=== PATIENT | female | born 2000 | race Hispanic/Latino ===

== ENCOUNTER 2023-04-04 20:31 | Emergency (ER) | payer OTHER ==
[2023-04-04 21:33] LABS: Absolute Lymphocytes (CBC) 3.6 K/uL (0.7-4.9); Hematocrit 36.4 % (36.0-45.0); Lymphocytes % 24.1 % (15.3-44.8); MCV 79.5 fL (80-100); MPV 7.5 fL (7.6-11.3); RBC Red Blood Cell Count 4.57 M/uL (3.86-4.86); Specific Gravity 1.009 (1.005-1.030); Urine Bilirubin NEGATIVE (Negative); Urine Blood Negative (Negative); Urine Clarity Clear (Clear); Urine Color Colorless (Yellow); Urine Glucose NEGATIVE (Negative); Urine Protein NEGATIVE (Negative); Urine Urobilinogen Normal (Normal)
[2023-04-04 21:54] LABS: Albumin 3.7 g/dL (3.4-5.0); Bilirubin Total 0.2 mg/dL (0.2-1.0); Potassium 3.8 mEq/L (3.5-5.1); Protein, Total 7.7 g/dL (6.4-8.2)
--- NOTE | 2023-04-04 22:35 | RAD REPORT ---
EXAM DESCRIPTION: CT - Abdomen Pelvis W Contrast - 04/04/2023 10:12 pm CLINICAL HISTORY: Abdominal pain COMPARISON: none. TECHNIQUE: Computed axial tomography of the abdomen pelvis was obtained. 95 cc Isovue-300 was admini stered intravenously. Oral contrast was not requested which limits evaluation of bowel and appendix All CT scans are performed using dose optimization technique as appropriate and may include automated exposure control or mA/KV adjustment according to patient size. FINDINGS: The liver, spleen, pancreas, adrenal and kidneys appear unremarkable. There is no evidence of diverticulitis. The appendix is borderline enlarged containing some air and fluid. No stranding within the adjacent f at. No abscess. No free air A 2 centimeter right ovarian cyst without significant free fluid. No follow-up recommended IMPRESSION: 2 centimeter right ovarian cyst without significant free fluid Borderline enlargement of the appendix. This is equivocal for early appendicitis and should be correl ated clinically
--- NOTE | 2023-04-04 22:48 | EDPHYS ---
Physician Documentation [facility] Name: Tennille Her Age: 22 yrs Sex: Female : 2000 Arrival Date: 04/04/2023 Time: 20:31 Bed 5 Private MD: ED Physician Eloy Nunes HPI: 04/04 20:49 This 22 yrs old Female presents to ER via Ambulatory with complaints of sp3 Abdominal Pain. 20:49 22-year-old female with possible gastritis seen at the [facility] and placed on sp3 omeprazole presents to the ED with chief complaint 2 days of abdominal pain epigastric in nature without any fever, vomiting, diarrhea, back pain or any other associated symptoms. Pain is described as cramping and worse with food. No melena or dark stools or blood in stools reported. 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 - Social history:: Smoking status: Patient denies any tobacco usage or history of. ROS: 20:50 Constitutional: Negative for fever, chills, and weight loss, Eyes: Negative for injury, sp3 pain, redness, and discharge, ENT: Negative for injury, pain, and discharge, Neck: Negative for injury, pain, and swelling, Cardiovascular: Negative for chest pain, palpitations, and edema, Respiratory: Negative for shortness of breath, cough, wheezing, and pleuritic chest pain, Back: Negative for injury and pain, : Negative for injury, bleeding, discharge, and swelling, MS/Extremity: Negative for injury and deformity, Skin: Negative for injury, rash, and discoloration, Neuro: Negative for headache, weakness, numbness, tingling, and seizure, Psych: Negative for depression, anxiety, suicide ideation, homicidal ideation, and hallucinations, Allergy/Immunology: Negative for hives, rash, and allergies, Endocrine: Negative for neck swelling, polydipsia, polyuria, polyphagia, and marked weight changes. 20:50 All other systems are negative. Exam: 20:50 Constitutional: This is a well developed, well nourished patient who is awake, alert, sp3 and in no acute distress. Head/Face: Normocephalic, atraumatic. Eyes: Pupils equal round and reactive to light, extra-ocular motions intact. Lids and lashes normal. Conjunctiva and sclera are non-icteric and not injected. Cornea within normal limits. Periorbital areas with no swelling, redness, or edema. ENT: Nares patent. No nasal discharge, no septal abnormalities noted. External auditory canals are clear. Oropharynx with no redness, swelling, or masses, exudates, or evidence of obstruction, uvula midline. Mucous membranes moist. Neck: Trachea midline, no thyromegaly or masses palpated, and no cervical lymphadenopathy. Supple, full range of motion without nuchal rigidity, or vertebral point tenderness. No Meningismus. Chest/axilla: Normal chest wall appearance and motion. Nontender with no deformity. No lesions are appreciated. Cardiovascular: Regular rate and rhythm with a normal S1 and S2. No gallops, murmurs, or rubs. Normal PMI, no JVD. No pulse deficits. Respiratory: Lungs have equal breath sounds bilaterally, clear to auscultation and percussion. No rales, rhonchi or wheezes noted. No increased work of breathing, no retractions or nasal flaring. Back: No spinal tenderness. No costovertebral tenderness. Full range of motion. Skin: Warm, dry with normal turgor. Normal color with no rashes, no lesions, and no evidence of cellulitis. MS/ Extremity: Pulses equal, no cyanosis. Neurovascular intact. Full, normal range of motion. Neuro: Awake and alert, GCS 15, oriented to person, place, time, and situation. Cranial nerves II-XII grossly intact. Motor strength 5/5 in all extremities. Sensory grossly intact. Cerebellar exam normal. Normal gait. Psych: Awake, alert, with orientation to person, place and time. Behavior, mood, and affect are within normal limits. 20:50 Abdomen/GI: Patient has mild epigastric pain to palpation without any rebound or guarding or other peritoneal signs.. Vital Signs: 20:41 BP 134 / 68; Pulse 95; Resp 18; Temp 98.5(O); Pulse Ox 100% on R/A; Weight 80.74 kg; mb9 Height 5 ft. 2 in. ; Pain 10/10; 23:06 BP 122 / 61; Pulse 89; Resp 18 S; Pulse Ox 100% on R/A; lg3 20:41 Body Mass Index 32.56 (80.74 kg, 157.48 cm) mb9 20:41 Pain Scale: Adult mb9 MDM: 20:43 Patient medically screened. sp3 20:51 Data reviewed: vital signs, nurses notes, lab test result(s), radiologic studies. ED sp3 course: 22-year-old female with epigastric pain of 2 days. Differential diagnosis includes gastritis, peptic ulcer disease, pancreatitis, biliary pathology including cholelithiasis and cholecystitis, functional abdominal pain, among others. 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 Work-up will include laboratory values, urinalysis and CT scan of the abdomen and pelvis with IV contrast. Patient does not require pain medication at this time. Disposition to be based on work-up and patient course with likely discharge with follow-up with GI for endoscopy.. 22:44 ED course: Patient is in no acute pain whatsoever currently. Reviewed CT scan of the sp3 abdomen and pelvis was demonstrated borderline appendix. I have vigorously examined the right lower quadrant with extreme pressure on McBurney's point and patient is not tender whatsoever. There are no peritoneal signs at all. Clinically the CT result does not correlate with patient's complaints. I have gone over CT results with both patient and her father as well as her laboratory values including mildly elevated WBC count. I have told her to watch her abdomen over the next 24 to 48 hours and if she has any increase in pain or pain at all in the right lower quadrant to come back immediately. They agree with this plan and understand that this could be early appendicitis and will monitor her symptoms while concurrently scheduling follow-up with Dr. Durham. On discharge, patient has normal vital signs and has 0 pain on abdominal exam and is resting comfortably in no acute distress.. 04/04 20:43 Order name: CBC with Diff; Complete Time: 21:37 sp3 04/04 20:43 Order name: CMP; Complete Time: 22:29 sp3 04/04 20:43 Order name: Lipase; Complete Time: 22:29 sp3 04/04 20:43 Order name: Test, Urine; Complete Time: 22:29 sp3 04/04 20:43 Order name: Urinalysis w/ reflexes; Complete Time: 21:37 sp3 04/04 20:43 Order name: CT Abd/Pelvis - IV Contrast Only; Complete Time: 22:41 sp3 04/04 20:43 Order name: IV Saline Lock; Complete Time: 21:15 sp3 04/04 20:43 Order name: Labs collected and sent; Complete Time: 21:15 sp3 Administered Medications: No medications were administered Disposition Summary: 04/04/23 22:46 Discharge Ordered Location: Home sp3 Condition: Stable sp3 Diagnosis - Other abdominal pain sp3 Followup: sp3 - With: Private Physician - When: Upon discharge from the Emergency Department - Reason: Recheck today's complaints Discharge Instructions: - Discharge Summary Sheet sp3 - Abdominal Pain, Adult, [id number] sp3 Forms: - Medication Reconciliation Form sp3 - Thank You Letter sp3 - Antibiotic Education sp3 - Prescription Opioid Use sp3 Signatures: Dispatcher [employer] Eloy Castano MD MD sp3 Keily Pulliam RN RN mb9
--- NOTE | 2023-04-04 22:48 | ER ---
Nurse's Notes [facility] Name: Tennille Her Age: 22 yrs Sex: Female : 2000 Arrival Date: 04/04/2023 Time: 20:31 Bed 5 Private MD: Diagnosis: Other abdominal pain Presentation: 04/04 20:41 Chief complaint: Patient states: "I've been having abdominal pain for almost 2 years [facility] now and they don't know what's causing it. The past 2 days I've been vomiting and can't keep any food or liquids down. The pain is making me SOB. I went to the [place] [facility] last week and got prescribed Omeprazole but it's not helping. Dr. Ambrose said that if my pain gets worse to come to an ER.". Coronavirus screen: Vaccine status: Patient reports being unvaccinated. Ebola Screen: No symptoms or risks identified at this time. Initial Sepsis Screen: Does the patient meet any 2 criteria? No. Patient's initial sepsis screen is negative. Does the patient have a suspected source of infection? No. Patient's initial sepsis screen is negative. Risk Assessment: Do you want to hurt yourself or someone else? Patient reports no desire to harm self or others. Onset of symptoms was 2021. 20:41 Method Of Arrival: Ambulatory [facility] 20:41 Acuity: AAORN 3 mb9 Triage Assessment: 20:44 General: Appears uncomfortable, Behavior is cooperative. Pain: Complains of pain in mb9 abdomen Pain does not radiate. Neuro: Sam Agitation-Sedation Scale (RASS): 0 - Alert and Calm Level of Consciousness is awake, alert, obeys commands, Oriented to person, place, time, situation, Appropriate for age. Respiratory: Reports shortness of breath Airway is patent Respiratory effort is even, unlabored, Respiratory pattern is regular, symmetrical. GI: Abdomen is round non-distended, Reports nausea, vomiting. Derm: Skin is pink, warm \\T\\ dry. Musculoskeletal: Range of motion: intact in all extremities. 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 - Social history:: Smoking status: Patient denies any tobacco usage or history of. Screenin:16 [facility] ED Fall Risk Assessment (Adult) History of falling in the last 3 months, lg3 including since admission No falls in past 3 months (0 pts). Abuse screen: Denies threats or abuse. Denies injuries from another. Nutritional screening: No deficits noted. Tuberculosis screening: No symptoms or risk factors identified. Assessment: 21:16 General: Appears in no apparent distress. uncomfortable, Behavior is calm, cooperative. lg3 Pain: Complains of pain in abdomen. Neuro: No deficits noted. Sam Agitation-Sedation Scale (RASS): 0 - Alert and Calm Level of Consciousness is awake, alert, obeys commands, Oriented to person, place, time, situation. Cardiovascular: No deficits noted. Denies chest pain, shortness of breath, Capillary refill < 3 seconds Clubbing of nail beds is absent JVD is absent Patient's skin is warm and dry. Respiratory: No deficits noted. Airway is patent Respiratory effort is even, unlabored, Respiratory pattern is regular, symmetrical. GI: No deficits noted. Abdomen is round non-distended, Bowel sounds present X 4 quads. Abd is soft X 4 quads Abdomen is tender to palpation in right upper quadrant and left upper quadrant Reports upper abdominal pain, cramping. : No deficits noted. No signs and/or symptoms were reported regarding the genitourinary system. EENT: No deficits noted. No signs and/or symptoms were reported regarding the EENT system. Derm: No deficits noted. No signs and/or symptoms reported regarding the dermatologic system. Skin is intact, is healthy with good turgor, Skin is dry, Skin is normal, Skin temperature is warm. Musculoskeletal: No deficits noted. No signs and/or symptoms reported regarding the musculoskeletal system. Circulation, motion, and sensation intact. Range of motion: intact in all extremities. 22:19 Reassessment: Patient appears in no apparent distress at this time. No changes from lg3 previously documented assessment. Patient and/or family updated on plan of care and expected duration. Pain level reassessed. Patient is alert, oriented x 3, equal unlabored respirations, skin warm/dry/pink. 23:06 Reassessment: Patient appears in no apparent distress at this time. No changes from lg3 previously documented assessment. Patient and/or family updated on plan of care and expected duration. Pain level reassessed. Patient is alert, oriented x 3, equal unlabored respirations, skin warm/dry/pink. Patient denies pain at this time. Patient states feeling better. Vital Signs: 20:41 BP 134 / 68; Pulse 95; Resp 18; Temp 98.5(O); Pulse Ox 100% on R/A; Weight 80.74 kg; mb9 Height 5 ft. 2 in. ; Pain 10/10; 23:06 BP 122 / 61; Pulse 89; Resp 18 S; Pulse Ox 100% on R/A; lg3 20:41 Body Mass Index 32.56 (80.74 kg, 157.48 cm) mb9 20:41 Pain Scale: Adult mb9 ED Course: 20:34 Patient arrived in ED. jj6 20:34 Eloy Nunes MD is Attending Physician. sp3 20:41 Arm band placed on. mb9 20:44 Triage completed. mb9 20:47 Radiology exam delayed due to test not completed at this time. IV insertion jg10 attempt and/or patient not having appropriate IV at this time. 21:16 Patient has correct armband on for positive identification. Placed in gown. Bed in low lg3 position. Call light in reach. Side rails up X 1. Client placed on continuous cardiac and pulse oximetry monitoring. NIBP monitoring applied. Door closed. Noise minimized. Warm blanket given. Family accompanied patient. 21:16 Inserted saline lock: 20 gauge in right antecubital area, using aseptic technique. lg3 Blood collected. 22:01 Polly Mckinney, RN is Primary Nurse. lg3 22:14 CT Abd/Pelvis - IV Contrast Only In Process Unspecified. EDMS 23:07 No provider procedures requiring assistance completed. IV discontinued, intact, lg3 bleeding controlled, No redness/swelling at site. Pressure dressing applied. Administered Medications: No medications were administered Medication: 23:07 VIS not applicable for this client. lg3 Outcome: 22:46 Discharge ordered by . sp3 23:07 Discharged to home ambulatory. lg3 23:07 Condition: stable 23:07 Discharge instructions given to patient, Instructed on discharge instructions, follow up and referral plans. Demonstrated understanding of instructions, follow-up care. 23:07 Patient left the ED. lg3 Signatures: Dispatcher [employer] Polly Cevallos, RN RN lg3 Eloy Nunes MD MD sp3 Kristen Rinaldij6 Yessi Marti jg10 Keily Pulliam RN RN mb9
[2023-04-04 23:16] VITALS: TEMP 98.5; O2SAT 100
[2023-04-04 23:18] VITALS: BP 122/61
== END 2023-04-04 23:07 | disposition home or self-care (01) ==
LOC: ER 20:31
DX: R10.13 Epigastric pain (principal)
CPT/HCPCS: 85025; 36415; 81025; 81003; 83690; 80053; 74177; Q9967

== ENCOUNTER 2024-12-02 17:33 | Emergency (ER) | payer SELFPAY ==
--- OUTSIDE RECORDS SUMMARY | 2024-12-02 17:39 | XMS REPORT | Continuity of Care Document ---
Author Name Unknown Address [address] [place] [address] [facility] [employer] Address 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 Name Role Phone PRIYANKA Attending Clinician Unavailable PRIYANKA Admitting Clinician Unavailable Encounters Start Date/Time End Date/Time Encounter Type Admission Type Attending Clinicians Care Facility Care Department Encounter ID Source 2023-06-08 14:34:26 2023-06-08 14:34:26 Outpatient [facility] [id number] Rob Wallis 2023-03-28 10:34:43 2023-03-28 10:34:43 Outpatient [facility] [id number] Rob Wallis 2022-12-22 16:27:09 2022-12-22 16:27:09 Outpatient [facility] [id number] Rob Wallis 2022-12-20 15:28:32 2022-12-20 15:28:32 Outpatient [facility] [id number] Rob Wallis 2022-05-16 00:00:00 2022-05-16 00:00:00 Outpatient [facility] [id number] [facility] Program Results Test Description Test Time Test Comments Results Result Co mments Source TTG [id number] 05:53:30* Test Item Value Reference Range Interpretation Comme nts TTG IgA (test code = 74284) <1 U/ML <15 INTERPRETIVE INFORMATION INTERPRETATION RESULT NEGATIVE <15 U/ML POSITIVE >=15 U/ML [facility] has important pathology staff changes effective 12/14/2022. New pathology staff will provide uninterrupted, excellent patient care and clinical consultation. See URL: [email or web address]. UNLESS OTHERWISE INDICATED, ALL TESTING PERFORMED AT [facility] [address] [place] [id number] LATHE SET UP PERSON: ZARIA GALLEGO M.D. CLIA NUMBER [id number] [place]. [id number] 04:02:00* Test Item Value Reference Range Interpretation Comme nts AMYLASE (test code = 5) 46 U/L 28-100 [id number] 04:02:00* Test Item Value Reference Range Interpretation Comme nts LIPASE (test code = 2057) 19 U/L 13-60 COMPREHENSIVE METABOLIC [id number] 04:01:37* Test Item Value Reference Range Interpretation Comme nts GLUCOSE (test code = 2217) 79 MG/DL 70-99 BUN (test code = 220) 8 MG/DL 6-20 CREATININE (test code = 2214) 0.67 MG/DL 0.60-1.30 eGFR (2020 CKD-EPI) (test code = 47976) 128 ML/MIN/1.73 >60 CALC BUN/CREAT (test code = 2235) 12 RATIO 6-28 SODIUM (test code = 2231) 139 MEQ/L 133-146 POTASSIUM (test code = 2228) 4.2 MEQ/L 3.5-5.4 CHLORIDE (test code = 2215) 104 MEQ/L 95-107 CARBON DIOXIDE (test code = 2206) 24 MEQ/L 19-31 CALCIUM (test code = 2209) 9.7 MG/DL 8.5-10.5 PROTEIN, TOTAL (test code = 2229) 7.3 G/DL 6.1-8.3 ALBUMIN (test code = 2201) 4.3 G/DL 3.5-5.2 CALC GLOBULIN (test code = 2240) 3.0 G/DL 1.9-3.7 CALC A/G RATIO (test code = 2234) 1.4 RATIO 1.0-2.6 BILIRUBIN, TOTAL (test code = 2207) 0.4 MG/DL See_Comment [Automated me ssage] The system which generated this result transmitted reference range: <=1.2. The reference range was not used to interpret this result as normal/abnormal. ALKALINE PHOSPHATASE (test code = 2204) 94 U/L 40-116 AST (test code = 2218) 18 U/L 9-40 ALT (test code = 2219) 20 U/L 5-40
[2024-12-02] MEDS ORDERED: METOCLOPRAMIDE 10 MG/2mL INJ ONE (18:32)
[2024-12-02] MEDS ORDERED: FAMOTIDINE 20 MG/2 ML VIAL IV ONE (18:32)
[2024-12-02] MEDS ORDERED: KETOROLAC 30 MG/ML INJ ONE (18:32)
[2024-12-02] MEDS ORDERED: ONDANSETRON 4 MG/2 ML VIAL ONE (18:32)
[2024-12-02] MEDS ORDERED: NA CHLORIDE 0.9% 1,000 ML ONE (18:32)
[2024-12-02] MEDS ORDERED: DIPHENHYDRAMINE 50 MG/ML VIAL ONE (18:32)
[2024-12-02 18:36] LABS: Absolute Eosinophils 0.2 K/uL (0-0.5); Absolute Lymphocytes (CBC) 3.2 K/uL (0.7-4.9); Absolute Monocytes 0.5 K/uL (0.1-1.3); Absolute Neutrophil 6.9 K/uL (1.8-8.0); Basophils % 0.4 % (0-1.3); Eosinophils % 1.4 % (0-4.4); Hematocrit 41.1 % (36.0-45.0); Hemoglobin 14.1 g/dL (12.0-15.0); Lymphocytes % 29.7 % (15.3-44.8); MCHC 34.2 g/dL (32.0-36.0); MCV 81.9 fL (80-100); MPV 7.3 fL (7.6-11.3); Monocytes % 4.4 % (3.3-12.3); Neutrophils % 64.1 % (41.7-73.7); Platelets 350 thou/uL (152-406); RBC Red Blood Cell Count 5.02 M/uL (3.86-4.86); Red Cell Distribution Width 15.3 % (12.1-15.2)
[2024-12-02 18:38] LABS: Specific Gravity 1.012 (1.005-1.030)
[2024-12-02 18:39] LABS: Specific Gravity 1.012 (1.005-1.030); Sqamous Epithelial None Seen /HPF (None Seen); Urine Bacteria None Seen /HPF (<20); Urine Bilirubin NEGATIVE (Negative); Urine Blood 2+ (Negative); Urine Clarity Clear (Clear); Urine Color Colorless (Yellow); Urine Crystals Unidentified Few /HPF (None Seen); Urine Culture Reflex Order NOT NEEDED; Urine Glucose NEGATIVE (Negative); Urine Ketones NEGATIVE (Negative); Urine Microscopic Reflex YN ORDER UMIC; Urine Nitrite NEGATIVE (Negative); Urine Protein NEGATIVE (Negative); Urine RBC 21-50 /HPF (None Seen); Urine Urobilinogen Normal (Normal); Urine WBC None Seen /HPF (<5); Urine pH 7.5 (5.0-7.0)
[2024-12-02 18:55] LABS: Albumin 3.7 g/dL (3.4-5.0); Albumin/Globulin Ratio 0.8 (1.1-1.8); Anion Gap 7.6 mEq/L (5.0-15.0); Bilirubin Total 0.2 mg/dL (0.2-1.0); Globulin 4.5 g/dL (2.3-3.5); Potassium 3.6 mEq/L (3.5-5.1); Protein, Total 8.2 g/dL (6.4-8.2)
--- NOTE | 2024-12-02 19:56 | EDPHYS ---
Physician Documentation [facility] Name: Tennille Her Age: 23 yrs Sex: Female : 2000 Arrival Date: 12/02/2024 Time: 17:33 Bed 17 Private MD: ED Physician Keke Ma HPI: 12/02 17:55 This 23 yrs old Female presents to ER via Ambulatory with complaints of cp Headache, Nausea. 17:55 The patient complains of pain to the forehead and top of head. The patient describes cp the headache as aching, constant. Onset: The symptoms/episode began/occurred yesterday. Associated signs and symptoms: Pertinent positives: nausea. 17:55 Severity of symptoms: in the emergency department the pain a " 8" out of "10". cp 17:55 Headache History: The patient has had previous headaches and this one is similar to cp previous episodes. 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 - Infectious Disease History:: Denies. - Social history:: Smoking status: Patient denies any tobacco usage or history of. ROS: 18:00 Constitutional: Negative for body aches, chills, fever, poor PO intake, cp 18:00 ENT: Negative for injury, pain, and discharge, cp 18:00 Eyes: Negative for pain, redness, 18:00 Abdomen/GI: Positive for nausea, Negative for abdominal pain, vomiting, diarrhea, constipation, 18:00 Neuro: Positive for headache, Negative for altered mental status, weakness, 18:00 All other systems are negative, Exam: 18:05 Constitutional: The patient appears in no acute distress, alert, awake, cp non-diaphoretic, non-toxic, well developed, well nourished, uncomfortable, 18:05 Head/Face: Normocephalic, atraumatic. cp 18:05 Eyes: Periorbital structures: appear normal, Pupils: equal, round, and reactive to light and accomodation, Extraocular movements: intact throughout, Conjunctiva: normal, no exudate, no injection, Lids and lashes: appear normal, bilaterally, 18:05 ENT: External ear(s): are unremarkable, Nose: is normal, Mouth: Lips: moist, Oral mucosa: moist, Posterior pharynx: Airway: no evidence of obstruction, patent, 18:05 Neck: ROM/movement: Meningeal signs: are not present, nuchal rigidity, is not appreciated, 18:05 Chest/axilla: Inspection: normal, 18:05 Cardiovascular: Rate: normal, Rhythm: regular, 18:05 Respiratory: the patient does not display signs of respiratory distress, Respirations: normal, no use of accessory muscles, no retractions, labored breathing, is not present, Breath sounds: are clear throughout, no decreased breath sounds, no stridor, no wheezing, 18:05 Abdomen/GI: Inspection: abdomen appears normal, Palpation: abdomen is soft and non-tender, in all quadrants, 18:05 Back: pain, is absent, ROM is normal, 18:05 Neuro: Orientation: to person, place \\T\\ time. Mentation: able to follow commands, Cerebellar function: is grossly normal, Motor: moves all fours, no focal deficits, Sensation: no obvious gross deficits, Vital Signs: 17:41 BP 126 / 77; Pulse 84; Resp 16; Temp 97.8; Pulse Ox 100% ; ko1 18:20 BP 109 / 71; Pulse 101; Resp 16; Pulse Ox 100% ; jb4 20:00 BP 108 / 50; Pulse 85; Resp 16; Pulse Ox 100% on R/A; jb4 MDM: 19:56 Medical Screening Exam initiated 19:56 Data reviewed: vital signs, nurses notes, lab test result(s), and as a result, I will cp discharge patient. 19:56 Differential diagnosis: hyponatremia, meningitis, meningoencephalitis, migraine, cp tension headache. I considered the following discharge prescriptions or medication management in the emergency department Medications were administered in the Emergency Department. See MAR. Counseling: I had a detailed discussion with the patient and/or guardian regarding the historical points, exam findings, and any diagnostic results supporting the discharge/admit diagnosis, lab results, to return to the emergency department if symptoms worsen or persist or if there are any questions or concerns that arise at home. Response to treatment: the patient's symptoms have markedly improved after treatment, and as a result, I will discharge patient. 12/02 17:53 Order name: CBC with Diff; Complete Time: 18:45 cp 12/02 18:45 Interpretation: Normal except: RBC 5.02; RDW 15.3; MPV 7.3. cp 12/02 17:53 Order name: CMP; Complete Time: 19:03 cp 12/02 19:03 Interpretation: Normal except: CL 108; AST 14; GLOB 4.5; A/G 0.8. cp 12/02 17:53 Order name: Lipase; Complete Time: 19:03 cp 12/02 17:53 Order name: Test, Urine; Complete Time: 18:45 cp 12/02 18:45 Interpretation: Reviewed. cp 12/02 17:53 Order name: Urinalysis w/ reflexes; Complete Time: 18:45 cp 12/02 18:45 Interpretation: Normal except: UBLD 2+; UPH 7.5; URBC 21-50. cp 12/02 17:53 Order name: IV Saline Lock; Complete Time: 18:34 cp 12/02 17:53 Order name: Labs collected and sent; Complete Time: 18:34 cp Administered Medications: 19:06 Drug: Famotidine IVP 20 mg IVP once; dilute with 10 mL 0.9% NaCl; give over 2 minutes jb4 Route: IVP; Site: right antecubital; 20:00 Follow up: Response: No adverse reaction; Marked relief of symptoms; Pain is decreased jb4 19:06 Drug: Ondansetron IVP 4 mg IVP once; over 2 minutes Route: IVP; Site: right antecubital;jb4 20:00 Follow up: Response: No adverse reaction; No change in condition; Nausea is decreased jb4 19:06 Drug: NS 0.9% IV 1000 ml IV at 1 bolus Per protocol; to be given as a bolus over 60 jb4 minutes Route: IV; Rate: 1 bolus; Site: right antecubital; 20:00 Follow up: Response: No adverse reaction; Marked relief of symptoms; IV Status: jb4 Completed infusion; IV Intake: 1000ml 19:06 Drug: metoCLOPramide IVP 10 mg IVP once; over 1 to 2 minutes Route: IVP; Site: right jb4 antecubital; 20:00 Follow up: Response: No adverse reaction; Marked relief of symptoms; Pain is decreased jb4 19:06 Drug: diphenhydrAMINE IVP 25 mg IVP once Route: IVP; Site: right antecubital; jb4 20:00 Follow up: Response: No adverse reaction; Marked relief of symptoms; Pain is decreased jb4 19:06 Drug: Ketorolac IVP 15 mg IVP once Route: IVP; Site: right antecubital; jb4 20:00 Follow up: Response: No adverse reaction; Marked relief of symptoms; Pain is decreased jb4 Disposition Summary: 12/02/24 19:56 Discharge Ordered Notes: Location: Home cp Problem: an acute exacerbation cp Symptoms: have improved cp Condition: Stable cp Diagnosis - Headache cp Followup: cp - With: Private Physician - When: 2 - 3 days - Reason: Recheck today's complaints Discharge Instructions: - Discharge Summary Sheet cp - Migraine Headache cp Forms: - Medication Reconciliation Form cp - Antibiotic Education cp - Prescription Opioid Use cp - Patient Portal Instructions cp - Leadership Thank You Letter cp Prescriptions: - Fioricet 50-300-40 mg Oral capsule - take 1 capsule ORAL route every 6 hours As needed; 20 capsule; Refills: 0, cp Product Selection Permitted - Reglan 10 mg Oral Tablet - take 1 tablet ORAL route every 6 hours take 30 minutes before meals and at cp bedtime; 20 tablet; Refills: 0, Product Selection Permitted Signatures: Dispatcher [employer] EDMS Justin Vega PA PA cp Bryson, James, RN RN jb4 Ana Bartholomew RN RN ko1 Corrections: (The following items were deleted from the chart) 17:46 17:44 Allergies: No Known Allergies; ko1 ko1 17:46 17:44 Home Meds: omeprazole 20 mg Oral Tablet; ko1 ko1 17:54 17:54 CBC+H.LAB.BRZ ordered. EDMS EDMS 17:54 17:54 COMPREHENSIVE METABOLIC PANEL+C.LAB.BRZ ordered. EDMS EDMS 17:54 17:54 LIPASE+C.LAB.BRZ ordered. EDMS EDMS 17:54 17:54 Test, Urine+UC.LAB.BRZ ordered. EDMS EDMS 17:54 17:54 Urinalysis+U.LAB.BRZ ordered. EDMS EDMS
--- NOTE | 2024-12-02 19:56 | ER ---
Nurse's Notes [facility] Name: Teninlle Her Age: 23 yrs Sex: Female : 2000 Arrival Date: 12/02/2024 Time: 17:33 Bed 17 Private MD: Diagnosis: Headache Presentation: 12/02 17:41 Chief complaint: Patient states: headache and nausea started yesterday, has a hx of ko1 migraines. Coronavirus screen: At this time, the client does not indicate any symptoms associated with coronavirus-19. Ebola Screen: No symptoms or risks identified at this time. Initial Sepsis Screen: Does the patient meet any 2 criteria? No. Patient's initial sepsis screen is negative. Does the patient have a suspected source of infection? No. Patient's initial sepsis screen is negative. Risk Assessment: Do you want to hurt yourself or someone else? Patient reports no desire to harm self or others. Onset of symptoms was December 02, 2024. 17:41 Method Of Arrival: Ambulatory ko1 17:41 Acuity: AARON 3 ko1 Triage Assessment: 17:44 Headache History: The patient has had previous headaches and this one is similar to ko1 previous episodes. General: Appears in no apparent distress. Behavior is calm, cooperative, appropriate for age. Pain: Complains of pain in top of head and forehead Pain currently is 8 out of 10 on a pain scale. Pain began gradually, Also complains of nausea. Neuro: Reports headache frontal area. 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 - Infectious Disease History:: Denies. - Social history:: Smoking status: Patient denies any tobacco usage or history of. Screenin:20 [facility] ED Fall Risk Assessment (Adult) History of falling in the last 3 months, jb4 including since admission No falls in past 3 months (0 pts) Confusion or Disorientation No (0 pts) Intoxicated or Sedated No (0 pts) Impaired Gait No (0 pts) Mobility Assist Device Used No (0 pt) Altered Elimination No (0 pt) Score/Fall Risk Level 0 - 2 = Low Risk Oriented to surroundings, Maintained a safe environment. Abuse screen: Denies threats or abuse. Nutritional screening: No deficits noted. Tuberculosis screening: No symptoms or risk factors identified. Assessment: 18:20 General: Appears in no apparent distress. uncomfortable, Behavior is calm, cooperative, jb4 appropriate for age. Pain: Complains of pain in left frontal area and left temporal area Pain does not radiate. Pain currently is 8 out of 10 on a pain scale. Neuro: Level of Consciousness is awake, alert, obeys commands, Oriented to person, place, time, situation, Reports headache Left side of head. Cardiovascular: Patient's skin is warm and dry. Respiratory: Airway is patent Respiratory effort is even, unlabored, Respiratory pattern is regular, symmetrical. EENT: No signs and/or symptoms were reported regarding the EENT system. Derm: Skin Skin is pink, warm \T\ dry. Musculoskeletal: Circulation, motion, and sensation intact. Range of motion: intact in all extremities. 19:20 Reassessment: Patient appears in no apparent distress at this time. Patient and/or jb4 family updated on plan of care and expected duration. Pain level reassessed. Patient is alert, oriented x 3, equal unlabored respirations, skin warm/dry/pink. 20:22 Reassessment: Patient appears in no apparent distress at this time. Patient and/or jb4 family updated on plan of care and expected duration. Pain level reassessed. Patient is alert, oriented x 3, equal unlabored respirations, skin warm/dry/pink. Vital Signs: 17:41 BP 126 / 77; Pulse 84; Resp 16; Temp 97.8; Pulse Ox 100% ; ko1 18:20 BP 109 / 71; Pulse 101; Resp 16; Pulse Ox 100% ; jb4 20:00 BP 108 / 50; Pulse 85; Resp 16; Pulse Ox 100% on R/A; jb4 ED Course: 17:38 Patient arrived in ED. im 17:40 Justin Vega PA is PHCP. cp 17:40 Nikko Mcginnis MD is Attending Physician. cp 17:44 Triage completed. ko1 17:44 Arm band placed on right wrist. Patient placed in waiting room, Patient notified of ko1 wait time. 18:20 Patient has correct armband on for positive identification. Bed in low position. Call jb4 light in reach. Side rails up X 1. Provided Education on: plan of care. 18:20 Initial lab(s) drawn, by me, sent to lab. Inserted saline lock: 22 gauge in right jb4 antecubital area, using aseptic technique. Blood collected. 18:20 No provider procedures requiring assistance completed. jb4 18:34 Urinalysis w/ reflexes Sent. ll1 18:34 Test, Urine Sent. ll1 18:45 Keke Ma MD is Attending Physician. cp 20:00 IV discontinued, intact, bleeding controlled, No redness/swelling at site. Pressure jb4 dressing applied. Administered Medications: 19:06 Drug: Famotidine IVP 20 mg IVP once; dilute with 10 mL 0.9% NaCl; give over 2 minutes jb4 Route: IVP; Site: right antecubital; 20:00 Follow up: Response: No adverse reaction; Marked relief of symptoms; Pain is decreased jb4 19:06 Drug: Ondansetron IVP 4 mg IVP once; over 2 minutes Route: IVP; Site: right antecubital;jb4 20:00 Follow up: Response: No adverse reaction; No change in condition; Nausea is decreased jb4 19:06 Drug: NS 0.9% IV 1000 ml IV at 1 bolus Per protocol; to be given as a bolus over 60 jb4 minutes Route: IV; Rate: 1 bolus; Site: right antecubital; 20:00 Follow up: Response: No adverse reaction; Marked relief of symptoms; IV Status: jb4 Completed infusion; IV Intake: 1000ml 19:06 Drug: metoCLOPramide IVP 10 mg IVP once; over 1 to 2 minutes Route: IVP; Site: right jb4 antecubital; 20:00 Follow up: Response: No adverse reaction; Marked relief of symptoms; Pain is decreased jb4 19:06 Drug: diphenhydrAMINE IVP 25 mg IVP once Route: IVP; Site: right antecubital; jb4 20:00 Follow up: Response: No adverse reaction; Marked relief of symptoms; Pain is decreased jb4 19:06 Drug: Ketorolac IVP 15 mg IVP once Route: IVP; Site: right antecubital; jb4 20:00 Follow up: Response: No adverse reaction; Marked relief of symptoms; Pain is decreased jb4 Medication: 18:20 VIS not applicable for this client. jb4 Intake: 20:00 IV: 1000ml; Total: 1000ml. jb4 Outcome: 19:56 Discharge ordered by . cp 20:00 Discharged to home ambulatory, with family, jb4 20:00 Condition: stable 20:00 Discharge instructions given to patient, Instructed on discharge instructions, follow up and referral plans. no drinking with medication, no driving heavy equipment, medication usage, Demonstrated understanding of instructions, follow-up care, medications, Prescriptions given X 2, 20:23 Patient left the ED. jb4 Signatures: Justin Vega PA PA cp Bryson, James RN RN jb4 Blayne Tomlin RN RN ll1 Ana Bartholomew RN RN ko1 Dasha Caruso Corrections: (The following items were deleted from the chart) 17:46 17:44 Allergies: No Known Allergies; ko1 ko1 17:46 17:44 Home Meds: omeprazole 20 mg Oral Tablet; ko1 ko1 20:22 20:22 BP 108 / 50; Pulse 85bpm; Resp 16bpm; Pulse Ox 100% RA; jb4 jb4
[2024-12-02 20:30] VITALS: TEMP 97.8; O2SAT 100
[2024-12-02 20:33] VITALS: BP 108/50
== END 2024-12-02 20:23 | disposition home or self-care (01) ==
LOC: ER 17:33
DX: R51.9 Headache, unspecified (principal); R11.0 Nausea
CPT/HCPCS: 36415; 80053; 81001; 81025; 83690; 85025; 96361; 96374; 96375; 99284; J1200; J2405; J2765; J7030